=== PATIENT | female | born 1965 | race Caucasian/White ===

== ENCOUNTER 2023-07-12 17:05 | Emergency (ER) | payer OTHER ==
[~2023-07-12] VITALS: Ht 170.2 cm; Wt 58.1 kg
[2023-07-12] MEDS ORDERED: PROSCAR5 MG PO (17:16)
[2023-07-12] MEDS ORDERED: CLONAZEPAM0.25 MG (17:17)
[2023-07-12] MEDS ORDERED: CHILDREN'S ASPI81 MG PO (17:17)
[2023-07-12] MEDS ORDERED: ACETAMINOPHEN 500 MG GEL..CAP PO ONE (19:00)
== END 2023-07-12 21:31 | disposition home or self-care (01) ==
LOC: ER 17:05
DX: S09.8XXA Other specified injuries of head, initial encounter (principal); W19.XXXA Unspecified fall, initial encounter; Y93.89 Activity, other specified; Y92.89 Other specified places as the place of occurrence of the external cause; Y99.8 Other external cause status